=== PATIENT | male | born 1955 | race Caucasian/White ===

== ENCOUNTER 2017-11-28 19:24 | Emergency (ER) | payer MEDICAID ==
[~2017-11-28] VITALS: Ht 157.5 cm; Wt 85.7 kg
[2017-11-28 19:37] VITALS: Ht 157.5 cm; Wt 85.7 kg
[2017-11-28 20:56] VITALS: BP 116/118
== END 2017-11-28 20:56 | disposition home or self-care (01) ==
LOC: ED 19:24
DX: S91.201A Unspecified open wound of right great toe with damage to nail, initial encounter (principal); I10 Essential (primary) hypertension; E11.9 Type 2 diabetes mellitus without complications; E78.00 Pure hypercholesterolemia, unspecified; W22.8XXA Striking against or struck by other objects, initial encounter; Y93.89 Activity, other specified; Y92.89 Other specified places as the place of occurrence of the external cause; Y99.8 Other external cause status
CPT/HCPCS: J2001

== ENCOUNTER 2017-12-01 09:43 | Emergency (ER) | payer MEDICAID ==
[~2017-12-01] VITALS: Ht 157.5 cm; Wt 78.9 kg
[2017-12-01 09:52] VITALS: BP 154/98; Ht 157.5 cm; Wt 78.9 kg
== END 2017-12-01 11:39 | disposition home or self-care (01) ==
LOC: ED 09:43
DX: Z48.01 Encounter for change or removal of surgical wound dressing (principal)